=== PATIENT | female | born 2000 | race Caucasian/White ===

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

== ENCOUNTER → 2018-09-08 | Outpatient (CLI) | payer BC ==
[2018-09-09 00:03] LABS: Candida species (DNA Probe) Positive (NEGATIVE); G. vaginalis (DNA Probe) Positive (NEGATIVE); T. vaginalis (DNA Probe) Negative (NEGATIVE)
== END | disposition home or self-care (01) ==
LOC: LAB EV 10:30 → LAB SHORT 10:30
PROVIDERS: Physician Assistant Medical
DX: N89.8 Other specified noninflammatory disorders of vagina (principal)
CPT/HCPCS: 87086; 87480; 87510; 87660

== ENCOUNTER 2018-10-04 07:37 | Day surgery (SDC) | payer BC ==
--- NOTE | 2018-10-04 10:10 | NUR ---
PATIENT HERE FOR [facility] AND NEED HUSSEIN CATH PLACED PRIOR TO PROCEDURE. 14FR. HUSSEIN CATH PLACED WITH 10CC NS WITHOUT DIFFICULTY. NO URINE RETURNED NOTED. PLACED PLUG AT THE END OF HUSSEIN CATH. REPORTED OFF TO SONNY IN RADIOLOGY.
== END 2018-10-04 23:10 | disposition home or self-care (01) ==
LOC: US 07:37 → RAD 10:00 → US 23:10
DX: N83.02 Follicular cyst of left ovary (principal); N30.21 Other chronic cystitis with hematuria; E66.9 Obesity, unspecified; Z88.0 Allergy status to penicillin; Z79.899 Other long term (current) drug therapy; Z68.35 Body mass index [BMI] 35.0-35.9, adult
CPT/HCPCS: 51600; 74455; 76830; Q9967

== ENCOUNTER → 2023-07-28 | Outpatient (CLI) | payer BC ==
[2023-07-30 17:22] LABS: HIV 1,2 COMBO ANTIGEN/ANTIBODY Negative (Negative)
[2023-07-30 18:33] LABS: HEPATITIS B SURFACE ANTIBODY <3.10 IU/L
[2023-07-30 19:04] LABS: HEPATITIS B SURFACE ANTIGEN Negative (Negative)
[2023-07-31 01:41] LABS: HCV QNT BY NAAT (IU/ML) Not Detected; HCV QNT BY NAAT (LOG IU/ML) Not Detected; HCV QNT BY NAAT INTERP Not Detected (Not Detected)
== END | disposition home or self-care (01) ==
LOC: LAB 18:33 → LAB SHORT 18:33
PROVIDERS: Family Medicine
DX: Z20.9 Contact with and (suspected) exposure to unspecified communicable disease (principal)
CPT/HCPCS: 84460

== ENCOUNTER 2024-01-04 01:19 | Emergency (ER) | payer BC ==
[~2024-01-04] VITALS: Ht 172.7 cm; Wt 117.9 kg
[2024-01-04 01:33] VITALS: BP 135/88
== END 2024-01-04 03:47 | disposition home or self-care (01) ==
LOC: ER 01:19
DX: S46.912A Strain of unspecified muscle, fascia and tendon at shoulder and upper arm level, left arm, initial encounter (principal); X58.XXXA Exposure to other specified factors, initial encounter; Z88.0 Allergy status to penicillin
CPT/HCPCS: 99283